=== PATIENT | female | born 1955 | race Caucasian/White ===

== ENCOUNTER 2018-02-11 14:31 | Emergency (ER) | payer OTHER ==
[~2018-02-11] VITALS: Ht 162.6 cm; Wt 99.2 kg
[~2018-02-11 14:31] MED LIST: ALBUAER2; ESOM20CA PO; REVIEWED; XNX25 PO
[2018-02-11 14:40] VITALS: TEMP 36.8; Ht 162.6 cm; Wt 99.2 kg
[2018-02-11 14:57] VITALS: O2SAT 99
--- NOTE | 2018-02-11 15:01 | EMERGENCY ROOM VISIT NOTE ---
History Report prepared by Chani: Jorden Little Under the Supervision of: Dr. Tarun Brito M.D. First contact with patient: 14:41 Chief Complaint: CHEST PAIN Stated Complaint: CHEST PAIN History of Present Illness The patient is a 62 year old female who presents to the Emergency Room with complaints of persistent chest pain that began four days ago. She rates her pain as a 5/10 in severity. The patient states that she has had chest pain in the past due to her history of costochondritis. She reports that she has not had a flair up of her condition in a while. The patient states that since four days ago she has had three episodes of sharp chest pain. She reports that these episodes have lasted for 5-10 minutes and then resolve. The patient states that her last episode was last night. She reports that after her sharp sensation resolves, she still experiences a dull chest pain. She states she is still currently experiencing the dull chest pain. She denies alcohol use, smoking, and cholecystectomy. The patient states she was recently being treated for bronchitis and a tooth extraction. She reports she has been eating a bland diet due to her recent surgery. Source of History: patient Onset: four days ago Position: chest Symptom Intensity: 5/10 Quality: sharp, dull Timing: other (persistent) Review of Systems See HPI for pertinent positives & negatives. A total of 10 systems reviewed and were otherwise negative. Past Medical & Surgical Medical Problems: (1) Acid reflux (2) Asthma (3) Bronchitis (4) Carpal tunnel syndrome (5) Diabetes (6) Kidney stone Surgical Problems: (1) Previous section Family History Cancer Diabetes mellitus Hypertension Social History Smoking Status: Former Smoker Alcohol Use: none Drug Use: none Marital Status: single Housing Status: lives with family Occupation Status: retired Current/Historical Medications Scheduled Acetaminophen (Tylenol), 1,000 MG PO PRN UD Alprazolam (Xanax), 0.25 MG PO HS Esomeprazole Magnesium (Nexium), 20 MG PO DAILY Scheduled PRN Albuterol Hfa (Ventolin Hfa), 2 PUFFS INH Q4 PRN for SOB/Wheezing Alprazolam (Xanax), 0.25 MG PO DAILY PRN for Anxiety Ibuprofen Tab (Advil), 400 MG PO Q6 PRN for Pain Allergies Coded Allergies: Aspirin (Unverified Allergy, Mild, SWELLING OF THROAT AND ITCHING, 11/06/09) Latex1 -Allergic Contact Dermititis (Unverified Allergy, Mild, 05/05/09) Shrimp (Unverified Allergy, Mild, ., 11/21/09) BEE STING (Unverified Allergy, ., 05/05/09) Doxycycline (Unverified Allergy, ., 11/21/09) Erythromycin (Unverified Allergy, ., 11/06/09) Iodine (Unverified Allergy, ., 11/06/09) Lovastatin (Unverified Allergy, ., 11/06/09) Penicillins (Unverified Allergy, ., 11/06/09) Sulfa Drugs (Unverified Allergy, ., 11/06/09) Physical Exam Vital Signs Date Time Temp Pulse Resp B/P (MAP) Pulse Ox O2 Delivery O2 Flow Rate FiO2 02/11/18 17:24 72 16 149/91 98 02/11/18 15:48 77 21 122/73 100 Nasal Cannula 2.0 02/11/18 14:57 86 02/11/18 14:57 99 Nasal Cannula 2.0 02/11/18 14:57 99 Nasal Cannula 2.0 02/11/18 14:45 99 Room Air 02/11/18 14:40 36.8 87 20 161/95 95 Room Air Physical Exam GENERAL: Awake, alert, well-appearing, in no acute distress HENT: Normocephalic, atraumatic. Oropharynx unremarkable. EYES: Normal conjunctiva. Sclera non-icteric. NECK: Supple. No nuchal rigidity. FROM. No JVD. RESPIRATORY: Clear to auscultation. CARDIAC: Regular rate, normal rhythm. Extremities warm and well perfused. Pulses equal. ABDOMEN: Soft, non-distended. No tenderness to palpation. No rebound or guarding. No masses. RECTAL: Deferred. MUSCULOSKELETAL: Tender to the breast plate. The back is symmetrical on inspection without obvious abnormality. There is no CVA tenderness to palpation. No joint edema. LOWER EXTREMITIES: Calves are equal size bilaterally and non-tender. No edema. No discoloration. NEURO: Normal sensorium. No sensory or motor deficits noted. SKIN: No rash or jaundice noted. Medical Decision & Procedures ER Provider Diagnostic Interpretation: X-ray results as stated below per interpretation by me and the radiologist: CHEST ONE VIEW PORTABLE HISTORY: Atypical chest pain. COMPARISON: Chest 01/05/2010. FINDINGS: The lungs are clear. Cardiac silhouette is normal in size. No pleural effusions. No pneumothorax. IMPRESSION: No acute process. Electronically signed by: Papi Juraez M.D. 02/11/2018 3:48 PM Dictated Date/Time: 02/11/2018 3:45 PM Laboratory Results 02/11/18 14:58 Red Blood Count 4.73, Mean Corpuscular Volume 84.1, Mean Corpuscular Hemoglobin 27.9, Mean Corpuscular Hemoglobin Concent 33.2, Mean Platelet Volume 9.4, Neutrophils (%) (Auto) 68.3, Lymphocytes (%) (Auto) 22.1, Monocytes (%) (Auto) 7.6, Eosinophils (%) (Auto) 1.4, Basophils (%) (Auto) 0.2, Neutrophils # (Auto) 5.81, Lymphocytes # (Auto) 1.88, Monocytes # (Auto) 0.65, Eosinophils # (Auto) 0.12, Basophils # (Auto) 0.02 02/11/18 14:58 Test 02/11/18 14:58 02/11/18 16:50 White Blood Count 8.51 K/uL (4.8-10.8) Red Blood Count 4.73 M/uL (4.2-5.4) Hemoglobin 13.2 g/dL (12.0-16.0) Hematocrit 39.8 % (37-47) Mean Corpuscular Volume 84.1 fL (80-100) Mean Corpuscular Hemoglobin 27.9 pg (25-34) Mean Corpuscular Hemoglobin Concent 33.2 g/dl (32-36) Platelet Count 294 K/uL (130-400) Mean Platelet Volume 9.4 fL (7.4-10.4) Neutrophils (%) (Auto) 68.3 % Lymphocytes (%) (Auto) 22.1 % Monocytes (%) (Auto) 7.6 % Eosinophils (%) (Auto) 1.4 % Basophils (%) (Auto) 0.2 % Neutrophils # (Auto) 5.81 K/uL (1.4-6.5) Lymphocytes # (Auto) 1.88 K/uL (1.2-3.4) Monocytes # (Auto) 0.65 K/uL (0.11-0.59) Eosinophils # (Auto) 0.12 K/uL (0-0.5) Basophils # (Auto) 0.02 K/uL (0-0.2) RDW Standard Deviation 41.6 fL (36.4-46.3) RDW Coefficient of Variation 13.5 % (11.5-14.5) Immature Granulocyte % (Auto) 0.4 % Immature Granulocyte # (Auto) 0.03 K/uL (0.00-0.02) Anion Gap 7.0 mmol/L (3-11) Est Creatinine Clear Calc Drug Dose 95.4 ml/min Estimated GFR () 107.6 Estimated GFR (Non- 92.9 BUN/Creatinine Ratio 16.8 (10-20) Calcium Level 9.3 mg/dl (8.5-10.1) Total Bilirubin 0.4 mg/dl (0.2-1) Direct Bilirubin < 0.1 mg/dl (0-0.2) Aspartate Amino Transf (AST/SGOT) 24 U/L (15-37) Alanine Aminotransferase (ALT/SGPT) 36 U/L (12-78) Alkaline Phosphatase 77 U/L (45-117) Total Creatine Kinase 50 U/L (26-192) Creatine Kinase MB < 0.5 ng/ml (0.5-3.6) Creatine Kinase MB Ratio (0-3.0) Total Protein 7.5 gm/dl (6.4-8.2) Albumin 3.6 gm/dl (3.4-5.0) Lipase 107 U/L (73-393) Bedside Troponin I < 0.030 ng/ml (0-0.045) Labs reviewed by ED physician. ECG Per My Interpretation Indication: chest pain Rate (beats per minute): 79 Rhythm: normal sinus Findings: other (No ST elevation or depression) Change: Second EKG: Normal sinus rhythm with a rate of 67. No ST elevations or depressions. ED Course 1445: Past medical records reviewed. The patient was evaluated in room A04B. A complete history and physical examination was performed. 1710: Upon reexamination the patient is resting comfortably. I discussed results and treatment plan with the patient. She verbalizes agreement and understanding. The patient is ready for discharge. Medical Decision Prior records/ancillary studies reviewed. Triage Nursing notes reviewed. The patient's history was concerning for chest pain. Differential diagnosis: Etiologies such as cardiac ischemia, aortic dissection, pulmonary embolism, pneumonia, pneumothorax, musculoskeletal, infections, pericarditis, myocarditis , esophageal rupture, gastrointestinal, as well as others were entertained. This is a 62-year-old female who presents the emergency department with spasms that have been ongoing for the past 4 days. In addition the patient is also complaining of chest pain that goes along with spasms. I will note that the patient just came off prednisone and had recently altered her diet for a more soft diet along with more liquids. Based on this I felt that the patient was most likely suffering from costochondritis versus reflux. Using shared medical decision making with the patient the patient wishes to have repeat EKGs as well as serial cardiac enzymes drawn. I will note she has a normal CBC normal renal profile normal liver profile. Her troponin is 0. Her repeat [id number] troponin is also 0. Based on these findings and the fact that the patient's EKG does not have any changes I felt that the patient can safely discharged home. I did recommend a GI cocktail Pepcid and Carafate for the patient which she steadfastly refused. I strongly recommended that the patient follow-up with cardiology and recommended that the patient not have any strenuous activity until that follow-up. Patient was in agreement with the treatment plan. Medication Reconcilliation Current Medication List: was personally reviewed by me Blood Pressure Screening Patient's blood pressure: Elevated blood pressure Blood pressure disposition: Referred to PCP Impression Primary Impression: Chest pain Scribe Attestation The scribe's documentation has been prepared under my direction and personally reviewed by me in its entirety. I confirm that the note above accurately reflects all work, treatment, procedures, and medical decision making performed by me. Departure Information Dispostion Home / Self-Care Referrals Mary Gray M.D. (PCP) Forms Call Back Authorization, HOME CARE DOCUMENTATION FORM, IMPORTANT VISIT INFORMATION Patient Instructions Chest Pain - [facility], ED Hyperglycemia Diabetic, Hypertension [place], My [facility] Additional Instructions Follow up with Dr Haider's office, No strenuous activity until follow up. You were found to have an elevated blood pressure today (>120 sytolic or >90 diastolic). Per medicare guidelines, you need to follow up with this blood pressure screening with your Primary Care Physician (PCP). For a new PCP call [phone]. You have been examined and treated today on an emergency basis only. This is not a substitute for, or an effort to provide, complete comprehensive medical care. It is impossible to recognize and treat all injuries or illnesses in a single emergency department visit. It is therefore important that you follow up closely with Dr Santa. Call as soon as possible for an appointment. Thank you for your time and consideration. I look forward to speaking with you again soon. Please don't hesitate to call us if you have any questions. Problem Qualifiers Primary Impression: Chest pain Chest pain type: unspecified Qualified Codes: R07.9 - Chest pain, unspecified
[2018-02-11 15:14] LABS: BASO % 0.2 %; BASO ABS # 0.02 K/uL (0-0.2); EOS % 1.4 %; EOS ABS # 0.12 K/uL (0-0.5); HEMATOCRIT 39.8 % (37-47); HEMOGLOBIN 13.2 g/dL (12.0-16.0); IG# 0.03 K/uL (0.00-0.02); LYMPH % 22.1 %; LYMPH ABS # 1.88 K/uL (1.2-3.4); MEAN CELL VOLUME 84.1 fL (80-100); MEAN CORPUSCULAR HEMOGLOBIN 27.9 pg (25-34); MEAN CORPUSCULAR HGB CONC 33.2 g/dl (32-36); MEAN PLATELET VOLUME 9.4 fL (7.4-10.4); MONO % 7.6 %; MONO ABS # 0.65 K/uL (0.11-0.59); NEUT % 68.3 %; NEUT ABS # 5.81 K/uL (1.4-6.5); PLATELET COUNT 294 K/uL (130-400); RED CELL DISTRIBUTION WIDTH CV 13.5 % (11.5-14.5); RED CELL DISTRIBUTION WIDTH SD 41.6 fL (36.4-46.3); WHITE BLOOD COUNT 8.51 K/uL (4.8-10.8)
[2018-02-11 15:32] LABS: ALBUMIN 3.6 gm/dl (3.4-5.0); ALT/SGPT 36 U/L (12-78); AST/SGOT 24 U/L (15-37); BLOOD UREA NITROGEN 12 mg/dl (7-18); CALCIUM 9.3 mg/dl (8.5-10.1); CARBON DIOXIDE 27 mmol/L (21-32); GLUCOSE 226 mg/dl (70-99); LIPASE 107 U/L (73-393); POTASSIUM 3.6 mmol/L (3.5-5.1); SODIUM 137 mmol/L (136-145)
[2018-02-11 15:37] LABS: ALKALINE PHOSPHATASE 77 U/L (45-117); CKMB < 0.5 ng/ml (0.5-3.6); TOTAL PROTEIN 7.5 gm/dl (6.4-8.2)
[2018-02-11] MEDS ORDERED: VNTHFA/IN INH (15:45)
[2018-02-11] MEDS ORDERED: IBUP-103 PO (15:45)
[2018-02-11] MEDS ORDERED: ALPR0.25 PO ×2 (15:45)
[2018-02-11] MEDS ORDERED: ACET-1256 PO (15:45)
--- NOTE | 2018-02-11 15:49 | DIAGNOSTIC IMAGING REPORT ---
CHEST ONE VIEW PORTABLE HISTORY: Atypical chest pain. COMPARISON: Chest 01/05/2010. FINDINGS: The lungs are clear. Cardiac silhouette is normal in size. No pleural effusions. No pneumothorax. IMPRESSION: No acute process. Electronically signed by: Papi Juarez M.D. 02/11/2018 3:48 PM Dictated Date/Time: 02/11/2018 3:45 PM
[2018-02-11 17:24] VITALS: BP 149/91; PULSE 72; O2SAT 98
== END 2018-02-11 17:25 | disposition home or self-care (01) ==
LOC: C.EDB 14:32 → C.EDA 17:25
DX: R07.9 Chest pain, unspecified (principal); R03.0 Elevated blood-pressure reading, without diagnosis of hypertension; J45.909 Unspecified asthma, uncomplicated; E11.9 Type 2 diabetes mellitus without complications; Z87.39 Personal history of other diseases of the musculoskeletal system and connective tissue; Z87.891 Personal history of nicotine dependence; Z79.899 Other long term (current) drug therapy; Z88.6 Allergy status to analgesic agent; Z88.1 Allergy status to other antibiotic agents; Z88.2 Allergy status to sulfonamides; Z88.0 Allergy status to penicillin; Z91.040 Latex allergy status; Z91.013 Allergy to seafood; Z82.49 Family history of ischemic heart disease and other diseases of the circulatory system

== ENCOUNTER 2020-10-29 12:42 | Inpatient (IN) ==
[2020-10-29] MEDS ORDERED: SODIUM CHLORIDE 0.9% 1000ML 1,000 ML IV ONE ×3 (12:49→22:48)
[2020-10-29] MEDS ORDERED: ONDANSETRON INJ 2 MG/ML 2 ML VIAL IV STA ×2 (12:49→17:29)
[2020-10-29] MEDS ORDERED: LIDOCAINE/EPINEPHRINE 1% 20 ML VIAL INFIL ONE (12:52)
[2020-10-29] MEDS ORDERED: ACETAMINOPHEN 1,000 MG/100 ML VIAL IV STA (12:53)
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
[2020-10-29 13:27] LABS: Basophils # (auto) 0.04 K/uL (0-0.2); Basophils % (auto) 0.3 %; Eosinophils # (auto) 0.21 K/uL (0-0.5); Eosinophils % (auto) 1.8 %; Hematocrit (blood only) 39.8 % (37-47); Hemoglobin 12.9 g/dL (12.0-16.0); Immature Granulocytes # (auto) 0.03 K/uL (0.00-0.02); Immature Granulocytes % (auto) 0.3 %; Lymphocytes # (auto) 2.55 K/uL (1.2-3.4); Lymphocytes % (auto) 21.9 %; Mean Corpuscular Hemoglobin 27.9 pg (25-34); Mean Corpuscular Hgb Conc 32.4 g/dL (32-36); Monocytes % (auto) 5.2 %; Neutrophils # (auto) 8.19 K/uL (1.4-6.5); Neutrophils % (auto) 70.5 %; Platelet Count 297 K/uL (130-400); RDW Coefficient of Variation 13.5 % (11.5-14.5); RDW Standard Deviation 42.4 fL (36.4-46.3); Red Blood Count 4.63 M/uL (4.2-5.4); White Blood Count 11.62 K/uL (4.8-10.8)
[2020-10-29 14:14] LABS: Alanine Aminotransferase 37 U/L (12-78); Albumin Globulin Ratio 0.9 (0.9-2); Albumin Level 3.6 gm/dl (3.4-5.0); Alkaline Phosphatase 97 U/L (45-117); BUN Creatinine Ratio 19.3 (10-20); Bilirubin,Total 0.4 mg/dl (0.2-1); Blood Urea Nitrogen 16 mg/dl (7-18); Calcium 9.1 mg/dl (8.5-10.1); Carbon Dioxide 28 mmol/L (21-32); Chloride 105 mmol/L (98-107); Est GFR (African American) 83.3; Est GFR (Non-African American) 71.9; Globulin 3.8 gm/dl (2.5-4.0); Glucose 270 mg/dl (70-99); Sodium 136 mmol/L (136-145); Total Protein 7.4 gm/dl (6.4-8.2); Troponin I < 0.015 ng/ml (0-0.045)
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
[2020-10-29] MEDS ORDERED: HYDROmorphone INJ 0.5 MG/0.5 ML SYR IV PRN (15:52)
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
--- NOTE | 2020-10-29 17:01 | Electrocardiogram Report ---
Test Reason : Blood Pressure : / mmHG Vent. Rate : 114 BPM Atrial Rate : 114 BPM P-R Int : 112 ms QRS Dur : 082 ms QT Int : 350 ms P-R-T Axes : 047 000 029 degrees QTc Int : 482 ms Poor data quality, interpretation may be adversely affected Sinus tachycardia Otherwise normal ECG When compared with ECG of 03-MAY-2020 13:37, No significant change was found Confirmed by Remigio Gutierrez ([id number]) on 10/29/2020 5:00:57 PM Referred By: REFERRED SELF Confirmed By:Gurpreet Gutierrez
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
[2020-10-29 17:51] LABS: iSTAT Creatinine 0.5 mg/dl (0.6-1.3); iSTAT Hemoglobin 12.9 g/dl (12.0-16.0); iSTAT Ionized Calcium 1.22 mmol/l (1.12-1.32)
[2020-10-29] MEDS ORDERED: SODIUM CHLORIDE 0.9% 1000ML 500 ML IV ONE (17:52)
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
[2020-10-29 21:40] LABS: Hematocrit (blood only) 34.8 % (37-47); Hemoglobin 11.5 g/dL (12.0-16.0)
[2020-10-29] MEDS ORDERED: GLUCOSE 10 TABS/TUBE PO PRN (23:18)
[2020-10-29] MEDS ORDERED: DEXTROSE 50% 50 ML SYRINGE IV PRN (23:18)
[2020-10-29] MEDS ORDERED: GLUCAGON FOR INJ 1 MG VIAL SQ PRN (23:18)
[2020-10-29] MEDS ORDERED: oxyCODONE HCL IR 5 MG TAB (IMMEDIATE RELEASE) PO PRN (23:18)
[2020-10-29] MEDS ORDERED: GLUCOSE 40% GEL 15 GM TUBE PO PRN (23:18)
[2020-10-29] MEDS ORDERED: PROMETHAZINE HCL 12.5 MG in SODIUM CHLORIDE 0.9% 50 ML IV PRN (23:18)
[2020-10-29] MEDS ORDERED: CARBOHYDRATES FOR HYPOGLYCEMIA PO PRN (23:18)
[2020-10-30] MEDS: INSULIN ASPART 100 UNITS/ML 3 ML PEN SC SCH ×5 (00:08→19:58)
[2020-10-30] MEDS: ACETAMINOPHEN 325 MG TAB PO PRN ×3 (00:14→19:19)
[2020-10-30] MEDS: ALPRAZolam 0.25 MG TABLET PO PRN ×3 (00:15→22:26)
[2020-10-30] MEDS: LACTATED RINGER'S 1,000 ML IV SCH ×2 (00:22→04:33)
[2020-10-30 02:18] LABS: Basophils # (auto) 0.01 K/uL (0-0.2); Basophils % (auto) 0.1 %; Hematocrit (blood only) 26.7 % (37-47); Hemoglobin 8.8 g/dL (12.0-16.0); Immature Granulocytes # (auto) 0.02 K/uL (0.00-0.02); Immature Granulocytes % (auto) 0.2 %; Lymphocytes # (auto) 1.78 K/uL (1.2-3.4); Lymphocytes % (auto) 14.3 %; Mean Corpuscular Hemoglobin 27.8 pg (25-34); Mean Corpuscular Volume 84.5 fL (80-100); Mean Platelet Volume 9.7 fL (7.4-10.4); Monocytes # (auto) 1.09 K/uL (0.11-0.59); Monocytes % (auto) 8.8 %; Neutrophils # (auto) 9.52 K/uL (1.4-6.5); Neutrophils % (auto) 76.6 %; Platelet Count 293 K/uL (130-400); RDW Coefficient of Variation 13.4 % (11.5-14.5); Red Blood Count 3.16 M/uL (4.2-5.4); White Blood Count 12.42 K/uL (4.8-10.8)
[2020-10-30 02:35] LABS: BUN Creatinine Ratio 17.2 (10-20); Calcium 8.1 mg/dl (8.5-10.1); Creatinine Clr Calc Pharmacy 101.9 ml/min; Est GFR (African American) 108.5; Est GFR (Non-African American) 93.6
[2020-10-30 06:13] LABS: Hemoglobin 8.5 g/dL (12.0-16.0)
[2020-10-30 06:28] LABS: Estimated Average Glucose 169 mg/dl; Hemoglobin A1C 7.5 % (4.5-5.6)
[2020-10-30] MEDS ORDERED: LACTATED RINGER'S 1,000 ML IV ONE (06:40)
[2020-10-30] MEDS: PANTOprazole 40 MG TAB PO SCH (07:32)
[2020-10-30 08:58] LABS: Reticulocyte % 1.7 % (0.5-2.0); Reticulocytes # 0.06 10^6/uL (0.02-0.10)
[2020-10-30] MEDS: lisinopril 40 MG TAB PO SCH (09:18)
[2020-10-30 09:30] LABS: Ferritin 37.9 ng/ml (8-388)
[2020-10-30 11:49] LABS: Hematocrit (blood only) 27.6 % (37-47)
--- NOTE | 2020-10-30 12:55 | Electrocardiogram Report ---
Test Reason : Blood Pressure : / mmHG Vent. Rate : 116 BPM Atrial Rate : 116 BPM P-R Int : 160 ms QRS Dur : 084 ms QT Int : 332 ms P-R-T Axes : 051 -10 025 degrees QTc Int : 461 ms Sinus tachycardia Otherwise normal ECG When compared with ECG of 29-OCT-2020 13:09, No significant change was found Confirmed by Remigio Gutierrez ([id number]) on 10/30/2020 12:55:23 PM Referred By: REFERRED SELF Confirmed By:Gurpreet Gutierrez
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
--- NOTE | 2020-10-30 15:30 | Electroencephalogram ---
EEG Procedure Note Date of Service October 30, 2020 Start / End Times Start Time: 1254 End Time: 0114 Referring Physician Michael Vigil MD History Posttraumatic syncopal event likely vagal question seizure Home Medication List Medication Instructions Recorded Confirmed Type albuterol sulfate 2 puff INHALATION Q6H PRN 08/12/19 10/29/20 History alprazolam [Xanax] 0.25 mg PO PM 08/12/19 10/29/20 History acetaminophen [Tylenol Extra 1,000 mg PO Q6H PRN 05/03/20 10/29/20 History Strength] esomeprazole magnesium 40 mg PO QAM 10/29/20 10/29/20 History lisinopril 40 mg PO QAM 10/29/20 10/29/20 History Inpatient Medication List Acetaminophen (Acetaminophen 325 Mg Tab) 650 mg PO Q4H PRN PRN Reason: Pain or Fever Stop: 11/28/20 23:17 Last Admin: 10/30/20 12:09 Dose: 650 mg Documented by: [id number] Admin: 10/30/20 00:14 Dose: 650 mg Documented by: [id number] Alprazolam (Alprazolam 0.25 Mg Tablet) 0.25 mg PO HS PRN PRN Reason: Insomnia Stop: 11/28/20 23:17 Last Admin: 10/30/20 00:20 Dose: 0.25 mg Documented by: [id number] Insulin Aspart (Insulin Aspart 100 Units/Ml 3 Ml Pen) 0 units SC [facility] Stop: 11/28/20 23:44 Last Admin: 10/30/20 13:14 Dose: Not Given Documented by: [id number] Admin: 10/30/20 08:11 Dose: Not Given Documented by: [id number] Cosigned by: [id number] Admin: 10/30/20 00:08 Dose: Not Given Documented by: [id number] Lisinopril (Lisinopril 40 Mg Tab) 40 mg PO [facility] Stop: 11/29/20 08:59 Last Admin: 10/30/20 09:18 Dose: 40 mg Documented by: [id number] Pantoprazole Sodium (Pantoprazole 40 Mg Tab) 40 mg PO [facility] Stop: 11/29/20 08:59 Last Admin: 10/30/20 07:32 Dose: 40 mg Documented by: [id number] Discontinued Medications Sodium Chloride (Nss 1000ml) 1,000 mls @ 999 mls/hr IV .Q1H1M ONE Stop: 10/29/20 13:49 Last Infusion: 10/29/20 15:29 Dose: 0 mls/hr Documented by: [id number] Admin: 10/29/20 13:19 Dose: 999 mls/hr Documented by: [id number] Acetaminophen (Ofirmev) 1,000 mg in 100 mls @ 400 mls/hr IV NOW STA Stop: 10/29/20 13:07 Last Infusion: 10/29/20 15:29 Dose: 0 mls/hr Documented by: [id number] Admin: 10/29/20 13:19 Dose: 400 mls/hr Documented by: [id number] Sodium Chloride (Nss 1000ml) 500 mls @ 999 mls/hr IV .Q31M ONE Stop: 10/29/20 18:22 Last Infusion: 10/29/20 19:55 Dose: 0 mls/hr Documented by: [id number] Admin: 10/29/20 18:02 Dose: 999 mls/hr Documented by: [id number] Sodium Chloride (Nss 1000ml) 1,000 mls @ 999 mls/hr IV .Q1H1M ONE Stop: 10/29/20 21:17 Last Infusion: 10/29/20 23:06 Dose: 0 mls/hr Documented by: [id number] Admin: 10/29/20 21:40 Dose: 999 mls/hr Documented by: [id number] Sodium Chloride (Nss 1000ml) 1,000 mls @ 999 mls/hr IV .Q1H1M ONE Stop: 10/29/20 23:48 Last Infusion: 10/30/20 00:29 Dose: 0 mls/hr Documented by: [id number] Admin: 10/29/20 23:19 Dose: 999 mls/hr Documented by: [id number] Lactated Ringer's (Lr) 1,000 mls @ 250 mls/hr IV .Q4H YOSI Stop: 11/29/20 00:00 Last Infusion: 10/30/20 07:19 Dose: 0 mls/hr Documented by: [id number] Admin: 10/30/20 04:33 Dose: 250 mls/hr Documented by: [id number] Infusion: 10/30/20 04:22 Dose: 250 mls/hr Documented by: [id number] Admin: 10/30/20 00:22 Dose: 250 mls/hr Documented by: [id number] Lactated Ringer's (Lr) 1,000 mls @ 80 mls/hr IV .[id number] ONE Stop: 10/30/20 19:09 Last Admin: 10/30/20 07:21 Dose: Not Given Documented by: [id number] Lidocaine/Epinephrine (Lidocaine/Epinephrine 1% 20 Ml Vial) 20 ml INFIL NOW ONE Stop: 10/29/20 12:53 Last Admin: 10/29/20 13:19 Dose: 20 ml Documented by: [id number] Ondansetron HCl (Ondansetron Inj 2 Mg/Ml 2 Ml Vial) 4 mg IV NOW STA Stop: 10/29/20 12:50 Last Admin: 10/29/20 13:19 Dose: 4 mg Documented by: [id number] Ondansetron HCl (Ondansetron Inj 2 Mg/Ml 2 Ml Vial) 4 mg IV NOW STA Stop: 10/29/20 17:30 Last Admin: 10/29/20 18:02 Dose: 4 mg Documented by: [id number] Description This is a 21 electrode EEG with a single channel dedicated to limited EKG. The electrodes were placed in accordance with the International 10-20 system. This EEG is excellent technically and has fewer no muscle movement artifacts as good quality video recording of patient movement and behavior was done during wakefulness at the bedside with photic stimulation and hyperventilation. Drowsiness/sleep were not recorded Under these conditions there is evidence for a normal background rhythm in the alpha range of 10 Hz frequency and 20 to 30 V in amplitude which is maximum posterior head regions bilaterally symmetrical. Polymorphic mid frequency theta activity seen over the central regions in a symmetrical fashion. Beta activity seen bifrontally. Photic stimulation provokes a minimal driving response with no photo myogenic and photoparoxysmal component. No time during waking tracing is evidence for potentially epileptogenic activity form polyspike and spike-wave burst, focal sharp waves and focal spikes Interpretation This is a normal EEG during wakefulness Clinical Correlation Is a normal EEG revealing no evidence for focal or generalized encephalopathy no evidence for potentially epileptogenic activity Michael Vigil MD
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
[2020-10-31] MEDS: MELATONIN 3 MG TAB PO PRN (02:46)
[2020-10-31 06:27] LABS: Basophils # (auto) 0.02 K/uL (0-0.2); Basophils % (auto) 0.2 %; Eosinophils # (auto) 0.05 K/uL (0-0.5); Eosinophils % (auto) 0.6 %; Hematocrit (blood only) 24.9 % (37-47); Hemoglobin 8.1 g/dL (12.0-16.0); Immature Granulocytes # (auto) 0.02 K/uL (0.00-0.02); Immature Granulocytes % (auto) 0.2 %; Lymphocytes # (auto) 1.75 K/uL (1.2-3.4); Lymphocytes % (auto) 19.3 %; Mean Corpuscular Hemoglobin 28.1 pg (25-34); Mean Corpuscular Hgb Conc 32.5 g/dL (32-36); Mean Corpuscular Volume 86.5 fL (80-100); Mean Platelet Volume 9.9 fL (7.4-10.4); Monocytes # (auto) 0.76 K/uL (0.11-0.59); Monocytes % (auto) 8.4 %; Neutrophils # (auto) 6.49 K/uL (1.4-6.5); Neutrophils % (auto) 71.3 %; Platelet Count 258 K/uL (130-400); RDW Coefficient of Variation 13.8 % (11.5-14.5); RDW Standard Deviation 43.9 fL (36.4-46.3); Red Blood Count 2.88 M/uL (4.2-5.4); White Blood Count 9.09 K/uL (4.8-10.8)
[2020-10-31 07:00] LABS: BUN Creatinine Ratio 15.1 (10-20); Calcium 8.6 mg/dl (8.5-10.1); Creatinine Clr Calc Pharmacy 99.6 ml/min; Est GFR (Non-African American) 93.2; Potassium 3.7 mmol/L (3.5-5.1)
[2020-10-31 07:04] LABS: Bilirubin,Total 0.4 mg/dl (0.2-1); Globulin 3.1 gm/dl (2.5-4.0); Total Protein 6.1 gm/dl (6.4-8.2)
[2020-10-31] MEDS: lisinopril 40 MG TAB PO SCH (08:06)
[2020-10-31] MEDS: PANTOprazole 40 MG TAB PO SCH (08:06)
[2020-10-31] MEDS: INSULIN ASPART 100 UNITS/ML 3 ML PEN SC SCH ×3 (08:09→17:09)
[2020-10-31] MEDS: ACETAMINOPHEN 325 MG TAB PO PRN ×2 (08:31→18:05)
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
[2020-10-31] MEDS: FERROUS SULFATE 325 MG TAB PO SCH ×2 (14:47→17:10)
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
[2020-10-31] MEDS: ALPRAZolam 0.25 MG TABLET PO PRN (23:22)
[2020-11-01 06:35] LABS: Basophils # (auto) 0.02 K/uL (0-0.2); Basophils % (auto) 0.2 %; Eosinophils # (auto) 0.16 K/uL (0-0.5); Eosinophils % (auto) 1.9 %; Hematocrit (blood only) 25.7 % (37-47); Hemoglobin 8.3 g/dL (12.0-16.0); Immature Granulocytes # (auto) 0.02 K/uL (0.00-0.02); Immature Granulocytes % (auto) 0.2 %; Lymphocytes # (auto) 1.85 K/uL (1.2-3.4); Lymphocytes % (auto) 22.5 %; Mean Corpuscular Hemoglobin 27.6 pg (25-34); Mean Corpuscular Hgb Conc 32.3 g/dL (32-36); Mean Corpuscular Volume 85.4 fL (80-100); Mean Platelet Volume 9.7 fL (7.4-10.4); Monocytes # (auto) 0.63 K/uL (0.11-0.59); Monocytes % (auto) 7.6 %; Neutrophils # (auto) 5.56 K/uL (1.4-6.5); Neutrophils % (auto) 67.6 %; Platelet Count 286 K/uL (130-400); RDW Coefficient of Variation 13.7 % (11.5-14.5); RDW Standard Deviation 42.7 fL (36.4-46.3); Red Blood Count 3.01 M/uL (4.2-5.4); White Blood Count 8.24 K/uL (4.8-10.8)
[2020-11-01 07:11] LABS: BUN Creatinine Ratio 17.8 (10-20); Calcium 9.2 mg/dl (8.5-10.1); Creatinine Clr Calc Pharmacy 110.2 ml/min; Est GFR (African American) 111.5; Est GFR (Non-African American) 96.2; Potassium 3.5 mmol/L (3.5-5.1)
[2020-11-01 07:14] LABS: Albumin Globulin Ratio 0.9 (0.9-2); Bilirubin,Total 0.4 mg/dl (0.2-1); Globulin 3.4 gm/dl (2.5-4.0); Total Protein 6.4 gm/dl (6.4-8.2)
[2020-11-01] MEDS: lisinopril 40 MG TAB PO SCH (08:07)
[2020-11-01] MEDS: PANTOprazole 40 MG TAB PO SCH (08:07)
[2020-11-01] MEDS: FERROUS SULFATE 325 MG TAB PO SCH ×2 (08:07→17:30)
[2020-11-01] MEDS: POLYETHYLENE (MIRALAX) 17 GM PACK PO SCH (08:07)
--- NOTE | 2020-11-01 11:33 | CT Scan Report ---
MAXILLOFACIAL CT WITHOUT CONTRAST CLINICAL HISTORY: frontal headache, nasal bridge pain, r/o fractures COMPARISON STUDY: Head CT October 29, 2020. TECHNIQUE: A maxillofacial CT was performed without IV contrast. Coronal and sagittal reformats were viewed. Automated exposure control was utilized for the study. A dose lowering technique was utiliz ed adhering to the principles of ALARA. FINDINGS: Globes are intact. There is no retrobulbar hematoma. There is mild left infraorbital soft t issue swelling. This favors a contusion. No facial fracture is present. Alignment of the temporomandi bular joints is anatomic. No skull base fracture is noted. There is no acute fracture within visualiz ed portions of the upper cervical spine. IMPRESSION: No acute facial fracture. ACT 112: Negative or not required by law. Electronically signed by: Cruz Manjarrez M.D. 11/01/2020 11:32 AM
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
[2020-11-01] MEDS: ACETAMINOPHEN 325 MG TAB PO PRN (13:08)
[2020-11-01] MEDS: HEPARIN SOD 5,000 UNIT/0.5 ML VIAL SQ SCH ×2 (14:20→21:15)
[2020-11-01] MEDS: MENTHOL-ZINC OXIDE 360 APPLN/120 GM TUBE EXT SCH ×2 (14:21→21:15)
[2020-11-01] MEDS: SODIUM CHLORIDE 0.9% 1000ML 1,000 ML IV SCH (18:17)
[2020-11-01 18:20] LABS: Basophils # (auto) 0.03 K/uL (0-0.2); Basophils % (auto) 0.3 %; Eosinophils # (auto) 0.19 K/uL (0-0.5); Eosinophils % (auto) 1.7 %; Hematocrit (blood only) 27.9 % (37-47); Hemoglobin 9.1 g/dL (12.0-16.0); Immature Granulocytes # (auto) 0.03 K/uL (0.00-0.02); Immature Granulocytes % (auto) 0.3 %; Lymphocytes # (auto) 2.48 K/uL (1.2-3.4); Lymphocytes % (auto) 22.1 %; Mean Corpuscular Hemoglobin 27.9 pg (25-34); Mean Corpuscular Hgb Conc 32.6 g/dL (32-36); Mean Corpuscular Volume 85.6 fL (80-100); Mean Platelet Volume 9.5 fL (7.4-10.4); Monocytes # (auto) 0.62 K/uL (0.11-0.59); Monocytes % (auto) 5.5 %; Neutrophils # (auto) 7.89 K/uL (1.4-6.5); Neutrophils % (auto) 70.1 %; Platelet Count 363 K/uL (130-400); RDW Coefficient of Variation 13.6 % (11.5-14.5); RDW Standard Deviation 42.5 fL (36.4-46.3); Red Blood Count 3.26 M/uL (4.2-5.4); White Blood Count 11.24 K/uL (4.8-10.8)
--- NOTE | 2020-11-01 18:21 | CT Scan Report ---
CT OF THE HEAD WITHOUT CONTRAST CLINICAL HISTORY: episode of slurred speech, r/o CVA COMPARISON STUDY: Head CT October 29, 2020 at 7:[address] DOSE: 537.48 mGy.cm TECHNIQUE: Helical axial images of the head were obtained without IV contrast. Automated exposure con trol was utilized for the study. A dose lowering technique was utilized adhering to the principles o f ALARA. FINDINGS: No acute intracranial hemorrhage, midline shift or mass effect is present. The ventricular system is unremarkable. The basal cisterns are patent. No extra-axial collections are present. There are no findings to suggest acute dural sinus thrombosis or acute territorial infarct. Note is again m deidra of a frontal scalp contusion and laceration with skin emerson. There is no calvarial fracture. IMPRESSION: 1. No acute intracranial findings. 2. Right frontal scalp contusion and laceration with skin emerson. No calvarial fracture. ACT 112: Negative or not required by law. Electronically signed by: Cruz Manjarrez M.D. 11/01/2020 6:19 PM
[2020-11-01 18:38] LABS: BUN Creatinine Ratio 20.3 (10-20); Calcium 9.1 mg/dl (8.5-10.1); Creatinine Clr Calc Pharmacy 94.2 ml/min; Est GFR (African American) 105.9; Est GFR (Non-African American) 91.4; Potassium 3.7 mmol/L (3.5-5.1)
[2020-11-01] MEDS: ALPRAZolam 0.25 MG TABLET PO PRN (23:45)
[2020-11-02] MEDS: SODIUM CHLORIDE 0.9% 1000ML 1,000 ML IV SCH ×3 (02:00→17:07)
[2020-11-02] MEDS: HEPARIN SOD 5,000 UNIT/0.5 ML VIAL SQ SCH ×3 (06:10→21:10)
[2020-11-02 06:20] LABS: Basophils # (auto) 0.03 K/uL (0-0.2); Basophils % (auto) 0.4 %; Eosinophils # (auto) 0.21 K/uL (0-0.5); Eosinophils % (auto) 2.9 %; Hematocrit (blood only) 23.8 % (37-47); Hemoglobin 7.8 g/dL (12.0-16.0); Immature Granulocytes # (auto) 0.02 K/uL (0.00-0.02); Immature Granulocytes % (auto) 0.3 %; Lymphocytes # (auto) 1.91 K/uL (1.2-3.4); Lymphocytes % (auto) 26.3 %; Mean Corpuscular Hgb Conc 32.8 g/dL (32-36); Mean Corpuscular Volume 85.3 fL (80-100); Mean Platelet Volume 9.5 fL (7.4-10.4); Monocytes # (auto) 0.48 K/uL (0.11-0.59); Monocytes % (auto) 6.6 %; Neutrophils % (auto) 63.5 %; Platelet Count 323 K/uL (130-400); RDW Coefficient of Variation 13.6 % (11.5-14.5); RDW Standard Deviation 42.3 fL (36.4-46.3); Red Blood Count 2.79 M/uL (4.2-5.4); White Blood Count 7.25 K/uL (4.8-10.8)
[2020-11-02 06:50] LABS: Albumin Level 2.8 gm/dl (3.4-5.0); BUN Creatinine Ratio 21.4 (10-20); Calcium 9.1 mg/dl (8.5-10.1); Creatinine Clr Calc Pharmacy 118.8 ml/min; Est GFR (African American) 114.1; Est GFR (Non-African American) 98.4; Potassium 3.5 mmol/L (3.5-5.1)
[2020-11-02 06:53] LABS: Albumin Globulin Ratio 0.9 (0.9-2); Bilirubin,Total 0.4 mg/dl (0.2-1); Globulin 3.2 gm/dl (2.5-4.0)
[2020-11-02 07:12] LABS: RBC Morphology Unremarkable
[2020-11-02] MEDS: FERROUS SULFATE 325 MG TAB PO SCH ×2 (08:44→17:07)
[2020-11-02] MEDS: PANTOprazole 40 MG TAB PO SCH (08:44)
[2020-11-02] MEDS: POLYETHYLENE (MIRALAX) 17 GM PACK PO SCH (08:45)
[2020-11-02] MEDS: ACETAMINOPHEN 325 MG TAB PO PRN ×2 (08:47→23:53)
[2020-11-02] MEDS: MENTHOL-ZINC OXIDE 360 APPLN/120 GM TUBE EXT SCH ×2 (08:48→21:11)
[2020-11-02] MEDS ORDERED: lisinopril 20 MG TAB PO SCH (09:00)
[2020-11-02] MEDS ORDERED: diphenhydrAMINE Capsule 25 MG CAP PO PRN (09:29)
[2020-11-02] MEDS ORDERED: MELATONIN 3 MG TAB PO PRN (09:29)
[2020-11-02] MEDS ORDERED: LACTULOSE SYRUP 30 GM/45 ML UDP PO PRN (09:29)
[2020-11-02 12:05] LABS: Hematocrit (blood only) 25.8 % (37-47); Hemoglobin 8.4 g/dL (12.0-16.0)
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
[2020-11-02] MEDS: ALPRAZolam 0.25 MG TABLET PO PRN (21:18)
[2020-11-02] MEDS: MELATONIN 3 MG TAB PO PRN (23:53)
[2020-11-03] MEDS: SODIUM CHLORIDE 0.9% 1000ML 1,000 ML IV SCH ×2 (01:02→08:43)
[2020-11-03] MEDS: HEPARIN SOD 5,000 UNIT/0.5 ML VIAL SQ SCH ×3 (06:17→21:36)
[2020-11-03] MEDS: MENTHOL-ZINC OXIDE 360 APPLN/120 GM TUBE EXT SCH ×2 (06:18→20:07)
[2020-11-03 07:42] LABS: Basophils # (auto) 0.02 K/uL (0-0.2); Basophils % (auto) 0.3 %; Eosinophils # (auto) 0.21 K/uL (0-0.5); Eosinophils % (auto) 3.4 %; Hematocrit (blood only) 24.9 % (37-47); Immature Granulocytes # (auto) 0.02 K/uL (0.00-0.02); Immature Granulocytes % (auto) 0.3 %; Lymphocytes % (auto) 24.4 %; Mean Corpuscular Hemoglobin 27.5 pg (25-34); Mean Corpuscular Hgb Conc 32.1 g/dL (32-36); Mean Corpuscular Volume 85.6 fL (80-100); Mean Platelet Volume 9.2 fL (7.4-10.4); Monocytes % (auto) 8.1 %; Neutrophils # (auto) 3.89 K/uL (1.4-6.5); Neutrophils % (auto) 63.5 %; Platelet Count 335 K/uL (130-400); RDW Coefficient of Variation 13.7 % (11.5-14.5); RDW Standard Deviation 42.2 fL (36.4-46.3); Red Blood Count 2.91 M/uL (4.2-5.4); White Blood Count 6.14 K/uL (4.8-10.8)
[2020-11-03 08:16] LABS: Albumin Level 2.9 gm/dl (3.4-5.0); BUN Creatinine Ratio 14.8 (10-20); Calcium 9.2 mg/dl (8.5-10.1); Creatinine Clr Calc Pharmacy 119.5 ml/min; Est GFR (African American) 114.8; Potassium 3.5 mmol/L (3.5-5.1)
[2020-11-03 08:19] LABS: Albumin Globulin Ratio 0.9 (0.9-2); Bilirubin,Total 0.5 mg/dl (0.2-1); Globulin 3.2 gm/dl (2.5-4.0); Total Protein 6.1 gm/dl (6.4-8.2)
[2020-11-03] MEDS: PANTOprazole 40 MG TAB PO SCH (08:39)
[2020-11-03] MEDS: FERROUS SULFATE 325 MG TAB PO SCH ×2 (08:39→16:57)
[2020-11-03] MEDS: lisinopril 20 MG TAB PO SCH (08:39)
[2020-11-03] MEDS: POLYETHYLENE (MIRALAX) 17 GM PACK PO SCH (08:41)
[2020-11-03] MEDS: ACETAMINOPHEN 325 MG TAB PO PRN ×2 (08:42→20:12)
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
[2020-11-03] MEDS: ALPRAZolam 0.25 MG TABLET PO PRN (20:12)
[2020-11-03] MEDS: MELATONIN 3 MG TAB PO PRN (23:08)
[2020-11-04] MEDS ORDERED: PANTOprazole 40 MG TAB PO SCH (07:00)
[2020-11-04 07:04] LABS: Basophils # (auto) 0.03 K/uL (0-0.2); Basophils % (auto) 0.4 %; Eosinophils # (auto) 0.24 K/uL (0-0.5); Eosinophils % (auto) 3.6 %; Hemoglobin 8.2 g/dL (12.0-16.0); Immature Granulocytes # (auto) 0.03 K/uL (0.00-0.02); Immature Granulocytes % (auto) 0.4 %; Lymphocytes # (auto) 1.58 K/uL (1.2-3.4); Lymphocytes % (auto) 23.7 %; Mean Corpuscular Hemoglobin 28.1 pg (25-34); Mean Corpuscular Hgb Conc 32.8 g/dL (32-36); Mean Corpuscular Volume 85.6 fL (80-100); Mean Platelet Volume 9.2 fL (7.4-10.4); Neutrophils % (auto) 62.9 %; Platelet Count 361 K/uL (130-400); Red Blood Count 2.92 M/uL (4.2-5.4); White Blood Count 6.68 K/uL (4.8-10.8)
[2020-11-04] MEDS: FERROUS SULFATE 325 MG TAB PO SCH (08:56)
[2020-11-04] MEDS: lisinopril 20 MG TAB PO SCH (08:56)
[2020-11-04] MEDS: MENTHOL-ZINC OXIDE 360 APPLN/120 GM TUBE EXT SCH (08:57)
[2020-11-04] MEDS: ACETAMINOPHEN 325 MG TAB PO PRN (09:00)
[2020-11-04] MEDS ORDERED: ENOXAPARIN INJ 40 MG/0.4 ML SYR SQ SCH (09:00)
[2020-11-04] MEDS: POLYETHYLENE (MIRALAX) 17 GM PACK PO SCH (10:17)
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
== END 2020-11-04 14:47 | DRG 312 ==
LOC: 2N 12:42 → ED 12:42 → 2N 23:03 → SUATTDRO 10-30 18:47